=== PATIENT | female | born 1985 | race Caucasian/White ===

== ENCOUNTER → 2019-02-15 | Outpatient (REF) | payer OTHER | LOC: M LABDRWAD 13:53 | PROVIDERS: ATTEND Advanced Practice Midwife | DX: O36.80X1 Pregnancy with inconclusive fetal viability, fetus 1 (principal); Z3A.00 Weeks of gestation of pregnancy not specified ==

== ENCOUNTER → 2019-02-20 | Outpatient (CLI) | payer OTHER ==
--- NOTE | 2019-02-20 19:47 | REP ---
First trimester obstetric ultrasound for viability: There is an intrauterine gestational sac with a pole. There is cardiac activity. The heart rate is 120 beats per minute. The pole crown-rump length is 0.7 cm. This corresponds to a gestational age of 6 weeks 4 days/DESTINEE 10/12/2019. Gestational age by LMP is 6 weeks 5 days/DESTINEE 10/11/2019. There is no subchorionic hematoma. The maternal adnexa and cul-de-sac are unremarkable. Electronically Signed by Alfonso Rod MD 02/20/2019 07:39 P
== END ==
LOC: M RAD 17:30
PROVIDERS: ATTEND Advanced Practice Midwife
DX: O36.80X1 Pregnancy with inconclusive fetal viability, fetus 1 (principal)